=== PATIENT | female | born 1980 | race Two or more races ===

== ENCOUNTER 2023-02-24 08:17 | Emergency (ER) | payer OTHER ==
[~2023-02-24] VITALS: Ht 162.6 cm; Wt 73.5 kg
[2023-02-24] MEDS ORDERED: FLUCONAZOLE200 MG PO (09:16)
== END 2023-02-24 10:12 | disposition home or self-care (01) ==
LOC: ER 08:17
DX: B37.31 Acute candidiasis of vulva and vagina (principal)